=== PATIENT | female | born 1990 | race African-American/Black ===

== ENCOUNTER 2016-08-03 03:18 | Emergency (ER) | payer MEDICAID ==
[~2016-08-03] VITALS: Ht 160 cm; Wt 68.2 kg
[~2016-08-03 03:18] MED LIST: IBUP-1681 PO; [UNRECOGNIZED DRUG - CODE] PO
[2016-08-03] MEDS ORDERED: LORazepam 2 MG TABLET PO ONE (04:00)
[2016-08-03 04:41] VITALS: BP 125/68
== END 2016-08-03 04:43 | disposition home or self-care (01) ==
LOC: EMS 03:20
DX: F41.9 Anxiety disorder, unspecified (principal); G47.00 Insomnia, unspecified; F17.210 Nicotine dependence, cigarettes, uncomplicated
CPT/HCPCS: 93005; 99284

== ENCOUNTER 2020-11-05 20:16 | Emergency (ER) | payer MEDICAID ==
[~2020-11-05] VITALS: Ht 160 cm; Wt 81.8 kg
[2020-11-05 20:20] VITALS: BP 113/79
[2020-11-05] MEDS ORDERED: ESCI-8 PO (20:25)
[2020-11-05] MEDS ORDERED: HYDR50CA9 PO (20:25)
[2020-11-05] MEDS ORDERED: ARIP15TA27 PO (20:25)
[2020-11-05 20:57] LABS: BASOPHILS % (AUTO) 1.2 % (0.0-2.0); EOSINOPHILS % (AUTO) 2.4 % (1.0-6.0); HEMATOCRIT 39.1 % (36-46); HEMOGLOBIN 12.8 g/dL (12.0-16.0); LYMPHOCYTES # (AUTO) 2.7 K/uL (1.0-4.8); LYMPHOCYTES % (AUTO) 31.4 % (22.0-44.0); MEAN CORPUSCULAR HEMOGLOBIN 29.2 pg (26.0-34.0); MEAN CORPUSCULAR HGB CONC 32.7 G/dL (31.0-37.0); MEAN CORPUSCULAR VOLUME 89 fL (80-100); MONOCYTES # (AUTO) 0.6 K/uL (0.1-1.0); MONOCYTES % (AUTO) 6.5 % (2.0-9.0); NEUTROPHILS # (AUTO) 5.1 K/uL (1.8-7.7); NEUTROPHILS % (AUTO) 58.5 % (40.0-70.0); PLATELET COUNT (AUTO) 244 K/uL (150-450); RED BLOOD CELL COUNT(AUTO) 4.37 MIL/uL (4.00-5.20); RED CELL DISTRIBUTION WIDTH 13.3 % (11.5-14.5)
[2020-11-05 21:05] LABS: COVID AG,FIA SOURCE NASOPHARYNGEAL
[2020-11-05 21:05] LABS: ANION GAP 5 mmol/L (8-16); CALCIUM, TOTAL 8.7 mg/dL (8.8-10.5); CARBON DIOXIDE 28 mmol/L (22-29); CHLORIDE 103 mmol/L (98-107); CREATININE 0.93 mg/dL (0.60-1.30); GLOMERULAR FILTR. RATE CALC > 60 mL/min (>60); GLUCOSE,RANDOM 93 mg/dL (70-110); SODIUM SERUM 136 mmol/L (136-145); UREA NITROGEN, BLOOD 15 mg/dL (7-18)
[2020-11-05 21:16] LABS: AMPHET/METH SCREEN,URINE NEGATIVE (NEGATIVE); BARBITURATE SCREEN, URINE NEGATIVE (NEGATIVE); BENZODIAZEPINES SCREEN,URINE NEGATIVE (NEGATIVE); CANNABINOID SCREEN,URINE NEGATIVE (NEGATIVE); COCAINE SCREEN,URINE NEGATIVE (NEGATIVE); METHADONE SCREEN, URINE NEGATIVE (NEGATIVE); OPIATE SCREEN,URINE NEGATIVE (NEGATIVE)
[2020-11-05 21:17] LABS: ALANINE AMINOTRANSFERASE 26 U/L (12-78); ALBUMIN 3.3 g/dL (3.4-5.0); ALKALINE PHOSPHATASE 44 U/L (46-116); ASPARTATE AMINOTRANSFERASE 20 U/L (15-37); BILIRUBIN,TOTAL 0.3 mg/dL (0.1-1.0); HCG,QUANTITATIVE < 1 mIU/mL (0-6); TOTAL PROTEIN, SERUM 6.3 g/dL (6.4-8.2)
[2020-11-05 21:18] LABS: PHENCYCLIDINE SCREEN,URINE NEGATIVE (NEGATIVE)
== END 2020-11-05 22:00 | disposition left against medical advice (07) ==
LOC: EMS 20:16
DX: Z03.89 Encounter for observation for other suspected diseases and conditions ruled out (principal); Z53.21 Procedure and treatment not carried out due to patient leaving prior to being seen by health care provider; Z20.822 Contact with and (suspected) exposure to COVID-19
CPT/HCPCS: 36415; 80053; 80307; 84702; 85025; 87426; G0480

== ENCOUNTER 2022-04-28 15:48 | Emergency (ER) | payer MEDICAID ==
[~2022-04-28] VITALS: Ht 160 cm; Wt 99.1 kg
[~2022-04-28 15:48] MED LIST changes: +ARIP15TA27 PO; +ESCI-8 PO; +HYDR50CA7 PO; -IBUP-1681 PO; -[UNRECOGNIZED DRUG - CODE] PO
[2022-04-28 18:28] VITALS: BP 125/76
== END 2022-04-28 18:42 | disposition left against medical advice (07) ==
LOC: EMS 16:06
DX: M25.562 Pain in left knee (principal); Z53.21 Procedure and treatment not carried out due to patient leaving prior to being seen by health care provider